=== PATIENT | male | born 1945 | race African-American/Black ===

== ENCOUNTER 2017-11-30 07:48 | Outpatient (CLI) | payer MEDICARE, BC ==
[2017-11-30] MEDS ORDERED: ISOVUE-370 76%-LOCM 1 ML ONE (13:36)
== END 2017-11-30 07:49 | disposition home or self-care (01) ==
LOC: BICCT 07:48
PROVIDERS: ATTEND Internal Medicine Hematology & Oncology
DX: C91.11 Chronic lymphocytic leukemia of B-cell type in remission (principal); R59.0 Localized enlarged lymph nodes; I82.412 Acute embolism and thrombosis of left femoral vein
CPT/HCPCS: 71260; 74178

== ENCOUNTER 2018-02-21 08:14 | Outpatient (CLI) | payer MEDICARE, BC ==
[2018-02-21 08:58] LABS: Estimated GFR-MDRD - POC Greater than 90
[2018-02-21] MEDS ORDERED: Iopamidol 370 76% 100 ML VIAL ONE (12:57)
== END 2018-02-21 08:15 | disposition home or self-care (01) ==
LOC: BICCT 08:14
PROVIDERS: ATTEND Internal Medicine Hematology & Oncology
DX: C91.10 Chronic lymphocytic leukemia of B-cell type not having achieved remission (principal)
CPT/HCPCS: 71260; 74177; 82565

== ENCOUNTER 2018-12-06 08:33 | Outpatient (CLI) | payer MEDICARE, BC ==
[2018-12-06] MEDS ORDERED: ISOVUE-370 76%-LOCM 1 ML ONE (09:58)
--- NOTE | 2018-12-06 10:41 | CT ---
CONTRAST ENHANCED CT IMAGES OF THE CHEST, ABDOMEN, AND PELVIS: History: 73-year-old with history of lymphocytic leukemia. Technique: Contrast enhanced CT images of the chest, abdomen, and pelvis obtained after the administr ation of IV and oral contrast. FINDINGS: Minimal heterogeneity is seen in the left thyroid lobe, unchanged since the previous comparison CT. N o significant evidence of supraclavicular lymphadenopathy seen. No evidence of obvious mediastinal ly mphadenopathy is seen. No evidence of hilar lymphadenopathy seen. Minimal axillary lymph node enlarge ment is seen, unchanged and stable since the previous comparison CT from May 2018. Lung parenchymal scarring is seen in the left upper lobe. The thoracic and abdominal aortas are unremarkable. CT ABDOMEN AND PELVIS: The liver and spleen are unremarkable. The gallbladder is unremarkable. Enlarged portahepatis lymph n ode measuring approximately 2.2 cm is seen, minimally but not significantly larger than on the previo us exam. Some minimal enlargement of the left adrenal gland also seen, also stable. Mild periaortic lymph node enlargement is agreement. Left periaortic lymph node measures approximatel y 11 mm. This has not significantly changed since the previous comparison exam. In addition, external iliac mildly enlarged lymph node also seen, diameter measuring approximately 12 mm. The kidneys are unremarkable with no evidence of masses or lesions. No definite evidence of osseous lesions seen. IMPRESSION: Stable CT appearance of the chest, abdomen, and pelvis. Portahepatis, periaortic and external iliac l ymph nodes are essentially stable in size, not significantly changed. POS: [facility]
== END 2018-12-06 08:34 | disposition home or self-care (01) ==
LOC: BICCT 08:33
PROVIDERS: ATTEND Internal Medicine Hematology & Oncology
DX: C91.11 Chronic lymphocytic leukemia of B-cell type in remission (principal)
CPT/HCPCS: 71260; 74177; Q9966

== ENCOUNTER 2019-04-05 09:16 | Outpatient (CLI) | payer MEDICARE, BC ==
--- NOTE | 2019-04-05 09:42 | ULT ---
US Abdominal Aorta HISTORY: Abdominal aortic aneurysm screening COMPARISON: None. FINDINGS: Real-time imaging of the abdominal aorta shows a normal caliber aorta. The proximal aorta m easures 2.3 cm, mid 2.0 cm, distal 2.0 cm. The common iliac arteries are less than 1 cm. IMPRESSION: No evidence of aortic aneurysm.
== END 2019-04-05 09:17 | disposition home or self-care (01) ==
LOC: ULT 09:16
PROVIDERS: ATTEND Nurse Practitioner Family
DX: Z13.6 Encounter for screening for cardiovascular disorders (principal); I82.409 Acute embolism and thrombosis of unspecified deep veins of unspecified lower extremity
CPT/HCPCS: 76775

== ENCOUNTER 2019-05-31 08:27 | Outpatient (CLI) | payer MEDICARE, BC ==
--- NOTE | 2019-05-31 10:39 | CT ---
CT CHEST WITH CONTRAST: CT ABDOMEN WITH CONTRAST: CT PELVIS WITH CONTRAST: HISTORY: Leukemia, chronic lymphoid. COMPARISON: 12/06/2018 CORRELATION: None. FINDINGS: CHEST: Mediastinum: No mass, lymphadenopathy, or hematoma. Thyroid: Questionable 1.6 mm isthmus nodule. Aorta: Normal caliber. No periaortic fat stranding. Heart: Normal heart size. No significant pericardial fluid. Trachea and central bronchi: Patent. Pleural spaces: No pleural effusion. Right lung: Dependent atelectatic changes. Stable bleb in the lower lobe. Left lung: Chronic changes in the lingula and left lower lobe. Pneumothorax: None. ABDOMEN: Gallbladder: Unremarkable. Portal vein: Patent. Liver: A 3 mm hypodensity in the left hepatic lobe, too small to further characterize.. Spleen: Appropriate enhancement Pancreas: Appropriate enhancement Adrenal glands: Unremarkable right adrenal gland. Stable nodularity involving the left adrenal glan d, measuring 1.6 x . Lymphadenopathy: Redemonstration of an enlarged lymph node at the erickson hepatis, measuring 1.5 cm in short axis (previously measuring 2.2 cm in short axis). Kidneys: Symmetric enhancement. No obstructive uropathy. Mesentery: No mass, lymphadenopathy, free air or free fluid. Alimentary canal: No evidence of bowel obstruction. Ileocecal junction is unremarkable. Appendix i s difficult to appreciate. No obvious inflammation of the cecal apex. Contrast and fecal material in a nondistended, nondilated colon. PELVIS: No pelvic mass, free air or free fluid. Urinary bladder is unremarkable. Previously noted left ginette aortic lymph node is less evident on the current exam. Interval increase in size of a left lymph node, adjacent to the common iliac artery, currently measuring 1.5 cm. Previously, this lymph node m easured 1.2 cm. Osseous structures: Stable sclerotic focus involving the right iliac wing. Stable degenerative akins ge in both hips. No lytic lesions. IMPRESSION: 1. Interval decrease in size of a lymph node in the erickson hepatis. 2. Interval increase in size of a lymph node adjacent to the left common iliac artery. 3. Possible nodule in the isthmus of the thyroid gland. Nonemergent thyroid ultrasound is recommend ed. Transcribed Date/Time: 05/31/2019 10:47 AM
[2019-05-31] MEDS ORDERED: ISOVUE-370 76%-LOCM 1 ML ONE (13:54)
== END 2019-05-31 08:28 | disposition home or self-care (01) ==
LOC: BICCT 08:27
PROVIDERS: ATTEND Internal Medicine Hematology & Oncology
DX: C91.10 Chronic lymphocytic leukemia of B-cell type not having achieved remission (principal)
CPT/HCPCS: 71260; 74177; Q9966

== ENCOUNTER 2019-12-05 09:10 | Outpatient (CLI) | payer MEDICARE, BC ==
--- NOTE | 2019-12-05 10:06 | CT ---
CT chest with IV contrast CT abdomen and pelvis with IV and oral contrast HISTORY: Leukemia, chronic lymphoid neoplasm. Restaging. COMPARISON: Multiple exams back to 02/09/2017. FINDINGS: Lungs are well-inflated. Occasional small bullae and parenchymal scarring. Bovine origin of the great vessels at the aortic arch incidentally noted. No focal parenchymal lung mass or mediastinal adenopathy. Tiny low-density focus within the medial segment left liver lobe immediately anterior to the gallblad cristofer fossa is stable. It have the appearance of a cyst on the 05/31/2019 study. The elongated area of soft tissue density/adenopathy along the lateral margin of the erickson hepatis is unchanged in appearance from the recent exams, measuring up to 1.5 cm oblique width at the level of the gallbladder where it was measured on the previous exam. The elongated slightly enlarged left c ommon iliac lymph node is unchanged from the most recent study. Oral contrast is seen within the mid to distal esophagus. Small low-density lesion associated with the left adrenal gland is stable. Multiple sclerotic foci within the pelvis, consistent with bone islands, are stable dating back to 17 exam. IMPRESSION: Stable CT appearance of the enlarged lymph nodes near the erickson hepatis and along the lef t common iliac chain. No new areas of adenopathy are evident. Gastroesophageal reflux. Chronic-type findings are stable.
[2019-12-05] MEDS ORDERED: Iopamidol-370 76% 500 ML 1 ML ONE (13:43)
== END 2019-12-05 09:11 | disposition home or self-care (01) ==
LOC: BICCT 09:10
PROVIDERS: ATTEND Internal Medicine Hematology & Oncology
DX: C91.10 Chronic lymphocytic leukemia of B-cell type not having achieved remission (principal); I80.10 Phlebitis and thrombophlebitis of unspecified femoral vein; K21.9 Gastro-esophageal reflux disease without esophagitis; R59.0 Localized enlarged lymph nodes
CPT/HCPCS: 71260; 74177; Q9967

== ENCOUNTER 2020-12-03 08:51 | Outpatient (CLI) | payer MEDICARE, BC ==
[2020-12-03] MEDS ORDERED: Iopamidol-370 76% 500 ML 1 ML ONE (10:25)
--- NOTE | 2020-12-03 10:35 | CT ---
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 COMPARISON: 06/03/2020 FINDINGS: CT THORAX: Lungs: Approximately 4 mm pleural-based pulmonary nodule is seen at the lower aspect of the major fis sure in the right lower lobe unchanged from prior exam and also stable when compared to study on 11/30/2017. Linear scarring is again seen in the region of the lingula. No new pulmonary nodule, airsp eric consolidation, or mass is seen. Pleura: No pleural effusion. Lymph nodes: No lymphadenopathy. Mediastinum: Vascular calcifications are seen in the aortic arch. Chest wall: No abnormalities CT ABDOMEN AND PELVIS: Liver: Within normal limits. Gallbladder: Within normal limits. \ Pancreas: Within normal limits. Spleen: Within normal limits. Adrenal glands: Left adrenal nodule is again seen measuring 1.7 cm. This is also unchanged in size co mpared to a study on 07/02/2017. Right adrenal gland has a normal CT appearance. Kidneys: Within normal limits. Urinary Bladder: The urinary bladder is unremarkable. Reproductive organs: Within normal limits for patient's age. Bowel: Small amount retained fecal material is seen throughout the colon. Loops of small bowel are no rmal in caliber. Adenopathy:No enlarged lymph nodes are seen by CT size criteria. Peritoneum: No free fluid or fluid collection is seen. No free intraperitoneal gas is identified. Abdominal wall: No abnormalities seen. Osseous structures: There are stable sclerotic densities within the superior aspect right iliac bone as well as involving the left iliac bone unchanged when compared to prior study in 2017. Findings are most suggestive of bone islands. No new suspicious lytic or sclerotic osseous lesions are identif ied. Bilateral hip osteoarthritis is present with mild degenerative changes seen in the spine. IMPRESSION: 1. Stable CT chest, abdomen, and pelvis. 2. Stable right lower lobe pleural-based pulmonary nodule unchanged dating back to study in 2017. 3. Stable left adrenal nodule unchanged compared to study in 2017.
== END 2020-12-03 08:52 | disposition home or self-care (01) ==
LOC: BICCT 08:51
PROVIDERS: ATTEND Internal Medicine Hematology & Oncology
DX: C91.11 Chronic lymphocytic leukemia of B-cell type in remission (principal); R91.1 Solitary pulmonary nodule; E27.8 Other specified disorders of adrenal gland
CPT/HCPCS: 71260; 74177; 82565; Q9967

== ENCOUNTER 2021-07-02 13:15 | Outpatient (CLI) | payer MEDICARE, BC | END 2021-07-02 13:16 | disposition home or self-care (01) | LOC: BICRAD 13:15 | PROVIDERS: ATTEND Nurse Practitioner Family | DX: R05 Cough (principal); C91.10 Chronic lymphocytic leukemia of B-cell type not having achieved remission; F17.210 Nicotine dependence, cigarettes, uncomplicated; J90 Pleural effusion, not elsewhere classified | CPT/HCPCS: 71046 ==

== ENCOUNTER 2021-08-14 10:57 | Outpatient (CLI) | payer MEDICARE, BC | END 2021-08-14 10:58 | disposition home or self-care (01) | LOC: BICRAD 10:57 | PROVIDERS: ATTEND Nurse Practitioner Family | DX: J90 Pleural effusion, not elsewhere classified (principal) | CPT/HCPCS: 71046 ==

== ENCOUNTER 2021-09-08 08:46 | Outpatient (CLI) | payer MEDICARE, BC | END 2021-09-08 08:47 | disposition home or self-care (01) | LOC: BICCT 08:46 | PROVIDERS: ATTEND Internal Medicine Hematology & Oncology | DX: C91.10 Chronic lymphocytic leukemia of B-cell type not having achieved remission (principal); R91.1 Solitary pulmonary nodule; E27.8 Other specified disorders of adrenal gland | CPT/HCPCS: 71260; 74177; 82565 ==

== ENCOUNTER 2022-09-08 08:34 | Outpatient (CLI) | payer MEDICARE, BC ==
[2022-09-08] MEDS ORDERED: Iopamidol 370 76% 100 ML VIAL ONE (11:11)
== END 2022-09-08 08:35 | disposition home or self-care (01) ==
LOC: BICCT 08:34
PROVIDERS: ATTEND Internal Medicine Hematology & Oncology
DX: C91.10 Chronic lymphocytic leukemia of B-cell type not having achieved remission (principal); R59.0 Localized enlarged lymph nodes
CPT/HCPCS: 71260; 74177; 82565; Q9967

== ENCOUNTER 2022-11-30 09:38 | Outpatient (CLI) | payer MEDICARE, BC ==
[2022-11-30] MEDS ORDERED: Iopamidol-370 76% 500 ML 1 ML ONE (10:34)
== END 2022-11-30 09:39 | disposition home or self-care (01) ==
LOC: BICCT 09:38
PROVIDERS: ATTEND Internal Medicine Hematology & Oncology
DX: C91.10 Chronic lymphocytic leukemia of B-cell type not having achieved remission (principal); R59.1 Generalized enlarged lymph nodes; R91.1 Solitary pulmonary nodule; J98.4 Other disorders of lung
CPT/HCPCS: 71260; 74177; Q9967

== ENCOUNTER 2023-01-06 10:47 | Outpatient (CLI) | payer MEDICARE, BC | END 2023-01-06 10:48 | disposition home or self-care (01) | LOC: RAD 10:47 | PROVIDERS: ATTEND Internal Medicine Critical Care Medicine | DX: R06.00 Dyspnea, unspecified (principal) | CPT/HCPCS: 71046 ==

== ENCOUNTER 2023-02-22 09:41 | Outpatient (CLI) | payer MEDICARE, BC ==
[~2023-02-22 09:41] MED LIST: Iopamidol 370 76% 100 ML VIAL ONE
== END 2023-02-22 09:42 | disposition home or self-care (01) ==
LOC: BICCT 09:41
PROVIDERS: ATTEND Internal Medicine Hematology & Oncology
DX: C91.11 Chronic lymphocytic leukemia of B-cell type in remission (principal); I89.8 Other specified noninfective disorders of lymphatic vessels and lymph nodes
CPT/HCPCS: 71260; 74177; 82565; Q9967

== ENCOUNTER 2023-06-17 10:18 | Outpatient (CLI) | payer MEDICARE, BC | END 2023-06-17 10:19 | disposition home or self-care (01) | LOC: BICCT 10:18 | PROVIDERS: ATTEND Internal Medicine Hematology & Oncology | DX: C91.11 Chronic lymphocytic leukemia of B-cell type in remission (principal) | CPT/HCPCS: 71260; 74177; Q9967 ==

== ENCOUNTER 2024-01-05 10:39 | Outpatient (CLI) | payer MEDICARE, BC | END 2024-01-05 10:40 | disposition home or self-care (01) | LOC: RAD 10:39 | PROVIDERS: ATTEND Internal Medicine Critical Care Medicine | DX: R06.00 Dyspnea, unspecified (principal) | CPT/HCPCS: 71046 ==

== ENCOUNTER 2024-03-16 09:21 | Outpatient (CLI) | payer MEDICARE, BC ==
[2024-03-16] MEDS ORDERED: Iopamidol 370 76% 100 ML VIAL ONE (11:32)
== END 2024-03-16 09:22 | disposition home or self-care (01) ==
LOC: BICCT 09:21
PROVIDERS: ATTEND Internal Medicine Hematology & Oncology
DX: C91.10 Chronic lymphocytic leukemia of B-cell type not having achieved remission (principal); E27.8 Other specified disorders of adrenal gland; M16.12 Unilateral primary osteoarthritis, left hip; M89.9 Disorder of bone, unspecified; I70.90 Unspecified atherosclerosis; R59.0 Localized enlarged lymph nodes
CPT/HCPCS: 71260; 74177; Q9967

== ENCOUNTER 2024-10-02 08:49 | Outpatient (CLI) | payer MEDICARE, BC | END 2024-10-02 08:50 | disposition home or self-care (01) | LOC: BICCT 08:49 | PROVIDERS: ATTEND Internal Medicine Hematology & Oncology | DX: C91.11 Chronic lymphocytic leukemia of B-cell type in remission (principal); I80.10 Phlebitis and thrombophlebitis of unspecified femoral vein; R59.0 Localized enlarged lymph nodes; K59.00 Constipation, unspecified | CPT/HCPCS: 71260; 74177; 82565 ==

== ENCOUNTER 2025-06-18 08:20 | Day surgery (SDC) | payer MEDICARE, BC ==
[2025-06-18 08:37] LABS: Hematocrit 44.6 % (42.0-52.0); Hemoglobin 15.1 g/dL (14.0-18.0); Mean Corpuscular Hemoglobin 31.1 pg (27.0-31.0); Mean Corpuscular Volume 91.8 fL (78.0-98.0); Platelet Count 141 10x3/uL (130-400); Red Blood Cell (RBC) Count 4.86 mill/uL (4.70-6.10); White Blood Cell (WBC) Count 3.05 10x3/uL (4.8-10.8)
[2025-06-18 08:57] LABS: INR-International Normal Ratio 1.0; PTT 28.9 sec (22.9-36.1); Prothrombin Time 13.0 sec (12.0-14.7)
[2025-06-18 09:10] LABS: Nucleated RBC (Manual Ct) 1 % (0); Platelet Adequacy Comment Platelets Normal; Polychromasia SLIGHT = 2-3 cells HPF (0-2); RBC Morphology Within Normal Limits; Smudge Cells 12.7 %
[2025-06-18] MEDS ORDERED: Sodium Bicarbonate 2.5 MEQ/5 ML SDV ONE (10:01)
[2025-06-18] MEDS ORDERED: Lidocaine 1% w/Epinephrine 1:100K 20 ML VIAL ONE (10:01)
== END 2025-06-18 11:45 | disposition home or self-care (01) ==
LOC: CT 08:20
PROVIDERS: ATTEND Internal Medicine Hematology & Oncology
PROC: 079T3ZX Drainage of Bone Marrow, Percutaneous Approach, Diagnostic (ICD-10-PCS; principal; 2025-06-18)
DX: C91.10 Chronic lymphocytic leukemia of B-cell type not having achieved remission (principal); I80.10 Phlebitis and thrombophlebitis of unspecified femoral vein; D70.8 Other neutropenia; Z98.890 Other specified postprocedural states; Z88.6 Allergy status to analgesic agent
CPT/HCPCS: 36000; 38222; 77002; 77012; 85025; 85097; 85610; 85730; C1830; J2250; 36415; 88184; 88185; 88237; 88264; 88280; 88305; 88311; 88313; 88341; 88342; 99152; J3010

== ENCOUNTER 2025-08-23 08:44 | Outpatient (CLI) | payer MEDICARE, BC | END 2025-08-23 08:45 | disposition home or self-care (01) | LOC: ULT 08:44 | PROVIDERS: ATTEND Nurse Practitioner Family | DX: C91.10 Chronic lymphocytic leukemia of B-cell type not having achieved remission (principal); I83.899 Varicose veins of unspecified lower extremity with other complications; F17.210 Nicotine dependence, cigarettes, uncomplicated; M79.604 Pain in right leg; C85.90 Non-Hodgkin lymphoma, unspecified, unspecified site; M79.605 Pain in left leg | CPT/HCPCS: 93923; 93970 ==